=== PATIENT | male | born 1965 | race Caucasian/White ===

== ENCOUNTER 2018-07-12 12:31 | Day surgery (SDC) | payer OTHER, SELFPAY ==
[2018-07-03 15:17] VITALS: BMI 38.9
[2018-07-12] VITALS (8 sets, daily range): BP systolic 98–164; BP diastolic 67–92; PULSE 66–82; RESP 12–18; TEMP 36.1–36.9; O2SAT 85–97; BMI 36.8
--- NOTE | 2018-07-12 13:17 | PM.PREOP ---
Pre-operative Note Interval Note History & Physical reviewed/Exam performed by Physician: Yes Changes to H&P: No
[2018-07-12] MEDS: LACTATED RINGERS 1,000 ML 42 ML IV ×2 (13:52→16:53)
--- NOTE | 2018-07-12 14:32 | SUR.OPER ---
Lateral on padded OR bed with jamil bag positioner, head on pillow, gel axillary roll in place, bottom leg bent with gel pad under knee to foot, upper leg straight and supported with pillows. Operative arm secured in shoulder positioning suspension device. non-operative arm secured on padded arm board. Safety belt at hip, tape over blanket securing lower legs.
[2018-07-12] MEDS: CEFAZOLIN VIAL 3 GM in SODIUM CHLORIDE 0.9% 100 ML 200 ML IV (15:00)
--- NOTE | 2018-07-12 15:01 | PM.PREOP ---
Pre-operative Note Interval Note History & Physical reviewed/Exam performed by Physician: Yes Changes to H&P: No
--- NOTE | 2018-07-12 15:03 | P.OP_ITS ---
Operative Date/Time/Diagnoses Date of procedure: 07/12/18 Time of procedure: 16:16 Pre-op diagnosis: Impingement syndrome and osteoarthritis right shoulder Post-op diagnosis: same Procedure & Clinicians Procedure: Arthroscopic subacromial decompression right shoulder Same procedure as scheduled: Yes Indications: The patient presents today for arthroscopic subacromial decompression of the right shoulder after failure of conservative treatment. The nature of the procedure including the risks and benefits, alternatives, postoperative course and expected outcome were discussed and all questions answered. Consent was obtained. Operative site confirmed and marked. Surgeon: Abhijit Reddy [employer] Associate: Cassius Bach Anesthesia Type: General, Peripheral nerve block and Local Operative Notes Findings: Examination under anesthesia was unremarkable. Arthroscopic evaluation of the glenohumeral joint revealed some grade 2 chondromalacia of the central articular surface of the glenohumeral joint. No chondroplasty was required. There is is mild chondromalacia of the glenoid. The biceps and labrum were intact stable. The rotator cuff was pristine as visualized both from the subacromial space and bursal space. There was moderate bursitis in the subacromial space and prominence of the anterior acromion. A standard subacromial decompression with complete bursectomy was performed. The subacromial space was well decompressed at the end of the procedure. Closure Type: primary Specimen(s): none sent Prosthetic devices, grafts, tissues, transplants, or devices: K-wires Applied: device(s) and implant(s) Estimated Blood Loss (mL): 10 Blood products transfused: none Procedure in detail: The patient was taken the operative suite and placed under general anesthesia with scalene block and given prophylactic antibodies prior to surgery. The patient was then positioned in the lateral decubitus position on a beanbag and with an axillary roll. The arm was suspended with 10 pounds of weight. The acromion and coracoid as well as the expected portal sites were all marked. The shoulder was then injected with 20 mL of 1% lidocaine with epinephrine. The arm was then prepped and draped in usual sterile fashion. The joint was then filled with 20 mL of saline through the proposed posterior portal site. The posterior portal was then established and the scope placed bluntly into the glenohumeral joint. An anterior portal was then established from an outside in technique with a spinal needle. The glenohumeral joint was then inspected (see findings above). The scope was then switched to the subacromial space. A standard bursectomy and anterior/lateral chondroplasty was performed with a shaver and bur. The subacromial space was well decompressed. The arthroscopy was then completed and the shoulder drained. The portal sites were closed with interrupted 3-0 nylon suture. Subacromial space was filled with 20 mL of 0.5% ropivacaine and 4 of morphine. Sterile gauze dressings were then applied. The shoulder was placed into a sling. The patient tolerated the procedure well and was returned recovery room in good condition. Complications: none Condition: stable Disposition: same day surgery Plan for aftercare: Slowly progress activity as tolerated. Sling for comfort. Oxycodone 5 mg, #60 for postoperative pain control.
[2018-07-12] MEDS: SODIUM CHLORIDE IRRIG SOLUTION 3,000 ML, EPINEPHrine 1 MG IRR (15:44)
--- NOTE | 2018-07-12 15:44 | SUR.PREOP ---
Block start time [1408] . Monitoring initiated and maintained throughout procedure. Oxygen and medications given per anesthesiologist instructions. Patient remained stable throughout procedure, no adverse reactions noted. Block end time [1500].
[2018-07-12] MEDS: ROPIVACAINE 0.2% PF 2 MG/ML 10ML AMP 10 ML INJ (15:54)
[2018-07-12] MEDS: fentaNYL 100 MCG/2 ML INJ 50 MCG IV ×3 (16:20→16:36)
[2018-07-12] MEDS: OXYCODONE IR 5 MG TABLET PO (17:02)
== END 2018-07-12 17:19 | disposition home or self-care (01) ==
PROVIDERS: PCP Physician Assistant; Visit Provider Orthopaedic Surgery
PROC: (CPT 29805; principal; 2018-07-12 15:45)
DX: M75.41 Impingement syndrome of right shoulder (principal); M75.51 Bursitis of right shoulder; M19.011 Primary osteoarthritis, right shoulder; G89.18 Other acute postprocedural pain; M94.211 Chondromalacia, right shoulder; E66.9 Obesity, unspecified; Z68.35 Body mass index [BMI] 35.0-35.9, adult
CPT/HCPCS: 29822; 64415; 64450; J0171; J0690; J2250; J2795; J3010